=== PATIENT | male | born 1970 | race Caucasian/White ===

== ENCOUNTER 2020-04-03 01:35 | Outpatient (CLI) | payer BC, SELFPAY ==
[2020-04-04 03:00] LABS: SARS-CoV-2 RNA PCR Negative
== END 2020-04-03 01:36 | disposition home or self-care (01) ==
LOC: ANHCOVIDDT 01:35
PROVIDERS: PCP Internal Medicine; Visit Provider Internal Medicine Gastroenterology
DX: Z01.812 Encounter for preprocedural laboratory examination (principal); Z11.59 Encounter for screening for other viral diseases
CPT/HCPCS: 87635; C9803; U0003

== ENCOUNTER 2020-04-05 02:27 | Day surgery (SDC) | payer BC, SELFPAY ==
[2020-04-01 11:26] VITALS: BMI 36.5
[2020-04-05 08:02] VITALS: BP 141/89; PULSE 74; RESP 16; TEMP 36.5; O2SAT 74
--- NOTE | 2020-04-05 08:11 | WPDANESEPPF ---
Anes - Initial Pre Proc Eval Procedure: Operation Date: 04/05/20 09:00 Proposed Procedures p Screening Colonoscopy - David Lazo MD Date/Time: 04/05/20 08:11 Surgeon: David Lazo MD Pre Op Diagnosis: Neoplasm Screening Patient Data Age: 49 Gender: M Height: 6 ft 2 in Weight: 128.4 kg Last Vital Signs Temp 36.5 C 04/05/20 08:02 Pulse 74 04/05/20 08:02 Resp 16 04/05/20 08:02 BP 141/89 H 04/05/20 08:02 Pulse Ox 74 L 04/05/20 08:02 Allergies Allergy/AdvReac Type Severity Reaction Status Date / Time Penicillins Allergy Unknown UNKNOWN-RECEIVED Verified 04/05/20 08:00 A CHILD ILIOSONE Allergy Mild Hives Uncoded 04/05/20 08:00 Home Medications Medication Instructions Recorded Confirmed Type lisinopril 20 mg PO DAILY 04/01/20 04/01/20 History tadalafil 5 mg PO DAILY 04/01/20 04/01/20 History testosterone cypionate 200 mg IM WEEKLY 04/01/20 04/01/20 History Patient hx anesthesia problems: none Family hx anesthesia problems: none PMFSH Past Medical History Medical History (Updated 04/05/20 @ 08:12 by Sukhdev Thacker MD) GERD (gastroesophageal reflux disease) HTN (hypertension) Obesity DORIE (obstructive sleep apnea) Surgical History Surgical History (Updated 04/05/20 @ 08:12 by Sukhdev Thacker MD) History of cholecystectomy Social History Social History Smoking status: Never smoker Alcohol intake: current Drinks per week: 2 Substance use: never Substance use type: does not use Living arrangements: with family Spiritual care concerns: No Anes - Eval Final PreProcedure Day of Procedure 04/05/20 08:11 Patient weight: obese Heart: regular rate and rhythm Lungs: clear to auscultation Airway: Mallampati scale class II Neurological: alert and oriented Last oral intake: >/= 8 hours ASA classification: III Emergent: no Anesthetic plan: proceed Anesthesia type and monitoring: general GIVS and standard monitoring Informed Consent: The patient's anesthetic plan and its attendant risks and benefits were discussed with the patient/family/POA. Questions were solicited and answers provided to the satisfaction of the patient/family/POA.
[2020-04-05] MEDS: LACTATED RINGERS 1,000 ML 150 ML IV CONT (08:19)
--- NOTE | 2020-04-05 08:48 | WPDGICN ---
Assessment and Plan Assessment and plan (1) Family history of colon cancer in father: Code(s): Z80.0 - Family history of malignant neoplasm of digestive organs Status: Acute Assessment and Plan: Patient is a family history of colon cancer in his father period is been 6 years since last endoscopy. Plan is for surveillance colonoscopy at this time and at intervals in the future typically 5 years. (2) Dysphagia: Code(s): R13.10 - Dysphagia, unspecified Status: Acute Assessment and Plan: Patient complains of slow passage of food. Mostly with fatty foods more solid foods. Plan is to arrange EGD to evaluate this electively. GI Consult Note Consult date/time: 04/05/20 08:48 HPI: Jesu Durbin is a 49 year old male Seen in evaluation at the request of Dr. Ky Kim. Patient presents for screening colonoscopy. Family history is significant his father had colon cancer. Patient states that his own weight appetite bowel movements are normal. Patient denies abdominal pain. He has had no bleeding. Patient additionally notices that food will catch in the mid substernal portion of the chest. This will delay past should she of food. Denies any heartburn. He has had no weight loss. Review of Systems Review of Systems: All systems reviewed & are unremarkable except as noted in HPI and below PMFSH Past Medical History Medical History (Updated 04/05/20 @ 08:49 by David Lazo MD) GERD (gastroesophageal reflux disease) HTN (hypertension) Obesity DORIE (obstructive sleep apnea) Surgical History Surgical History (Updated 04/05/20 @ 08:12 by Sukhdev Thacker MD) History of cholecystectomy Social History Social History Smoking status: Never smoker Alcohol intake: current Drinks per week: 2 Substance use: never Substance use type: does not use Living arrangements: with family Spiritual care concerns: No Meds Home Medications and Allergies Home Medications Medication Instructions Recorded Confirmed Type lisinopril 20 mg PO DAILY 04/01/20 04/01/20 History tadalafil 5 mg PO DAILY 04/01/20 04/01/20 History testosterone cypionate 200 mg IM WEEKLY 04/01/20 04/01/20 History Allergies Allergy/AdvReac Type Severity Reaction Status Date / Time Penicillins Allergy Unknown UNKNOWN-RECEIVED Verified 04/05/20 08:00 A CHILD ILIOSONE Allergy Mild Hives Uncoded 04/05/20 08:00 Vital Signs Vital Signs - 24 hr 04/05/20 08:02 Temperature 97.7 F Pulse Rate 74 Respiratory Rate 16 Blood Pressure 141/89 H Pulse Oximetry 74 L Exam Narrative: Exam Narrative: Physical exam reveals patient to be alert. Vital signs stable. HEENT exam unremarkable. Lungs are clear to auscultation and percussion. Heart is without murmur or extra sounds. Abdominal exam bowel sounds are present soft nontender with no hepatosplenomegaly. Digital external rectal exam is normal.
[2020-04-05 09:19] VITALS: BP 116/61; PULSE 66; RESP 22; O2SAT 95
[2020-04-05 09:29] VITALS: BP 122/64; PULSE 65; RESP 18; O2SAT 96
[2020-04-05 09:39] VITALS: BP 125/73; PULSE 60; RESP 20; O2SAT 98
== END 2020-04-05 09:52 | disposition home or self-care (01) ==
PROVIDERS: PCP Internal Medicine; Visit Provider Internal Medicine Gastroenterology
PROC: 0DJD8ZZ Inspection of Lower Intestinal Tract, Via Natural or Artificial Opening Endoscopic (ICD-10-PCS; CPT 45378; principal; 2020-04-05 09:00)
DX: Z12.11 Encounter for screening for malignant neoplasm of colon (principal); Z80.0 Family history of malignant neoplasm of digestive organs; K64.8 Other hemorrhoids; R13.10 Dysphagia, unspecified; K21.9 Gastro-esophageal reflux disease without esophagitis; I10 Essential (primary) hypertension; E66.9 Obesity, unspecified; G47.33 Obstructive sleep apnea (adult) (pediatric)
CPT/HCPCS: 45378; J2704; J7120

== ENCOUNTER 2025-05-11 02:13 | Day surgery (SDC) | payer BC, SELFPAY ==
[2025-04-19 15:48] VITALS: BMI 32.2
--- OUTSIDE RECORDS SUMMARY | 2025-05-11 02:16 | XMS_ITS | Clinical Summary ---
Author Organization [facility] Address [address] [place] [id number] Care Team Providers Care Cath Lab Nurse Name Role Phone Myra Omalley PA-C Primary Care Provider [phone] Allergies Active Allergy Reactions Criticality Noted Date Comments Penicillins Rash Low 11/26/2018 As child Medications lisinopril 20 MG tablet Take 1 tablet (20 mg total) by mouth daily. 12/25/19 21 Active BD INTEGRA SYRINGE 21G X 1-1/2 3 ML Misc USE WITH TESTOSTERONE DIRECTED 03/27/20 21 Active B-D 5CC LUER-AGUSTIN SYR 22GX1 22G X 1 5 ML Misc see administration instructions. 09/27/19 21 Active tadalafil 5 MG tablet Take 1 tablet (5 mg total) by mouth daily. 02/18/20 21 Active testosterone cypionate 200 MG/ML injection INJECT 1ML INTO THE MUSCLE WEEKLY 03/28/20 21 Active triamcinolone 0.1 % cream APPLY TO AFFECTED AREAS TWICE DAILY UNTIL ALL CLEAR. RUB IN WELL. 02/18/20 21 Active omeprazole 20 MG capsuleIndicati ons:Gastroesoph ageal reflux disease, unspecified whether esophagitis present Take 1 capsule (20 mg total) by mouth daily. 90 capsule 1 04/08/20 21 Active scopolamine (TRANSDERM-SCOP ) 1 MG/3DAYS patch Place 1 patch onto the skin every third day. 10 patch 01/16/20 24 Active Active Problems Problem Noted Date Diagnosed Date H. pylori infection 04/18/2021 Immunizations Immunization Administration Dates Next Due Tdap (Boostrix) 11/26/2018 Family History Medical History Relation Comments Hypertension Father Cancer Mother Relation Status Comments Father Mother Social History Tobacco Use Types Packs/Day Years Used Date Smoking Tobacco: Never Smokeless Tobacco: Never Alcohol Use Standard Drinks/Week Comments Yes 0 (1 standard drink = 0.6 oz pur e alcohol) occasional Sex and Gender Information Value Date Recorded Sex Assigned at Not on file Legal Sex Male 2:58 PM CDT Gender Identity Not on file Sexual Orientation Not on file Last Filed Vital Signs Vital Sign Reading Time Taken Comments Blood Pressure 146/90 01/16/2024 10:15 AM CDT Pulse 60 01/16/2024 10:15 AM CDT Temperature 36.4 C (97.5 F) 01/16/2024 10:15 AM CDT Respiratory Rate 15 01/16/2024 10:15 AM CDT Oxygen Saturation 93% 01/16/2024 10:15 AM CDT Inhaled Oxygen Concentration - - Weight 121.1 kg (267 lb) 01/16/2024 8:30 AM CDT Height 188 cm (6' 2) 01/16/2024 8:30 AM CDT Body Mass Index 34.28 01/16/2024 8:30 AM CDT Plan of Treatment Health Maintenance Due Date Last Done Comments Colorectal Cancer Screening Colonoscopy (10 Years) 1968 Annual Physical 1971 Hepatitis C 1986 Hepatitis B Vaccines (1 of 3 - 19+ 3-dose series) 1987 Pneumococcal Vaccine: 50+ Years (1 of 1 - PCV) 2018 Zoster Vaccines (1 of 2) 2018 COVID-19 Vaccine (3 - 2024-2 6 season) 2025 09/03/2020, 08/06/2020 Influenza Adult (#1) 2025 05/11/2017 DTaP, Tdap and Td Vaccines ( 2 - Td or Tdap) 11/26/2028 11/26/2018 Hepatitis A Vaccines Aged Out No long er eligible based on patient's age to complete this topic Meningococcal B Vaccine Aged Out No l onger eligible based on patient's age to complete this topic Meningococcal Vaccine Aged Out No catrachita kenia eligible based on patient's age to complete this topic RSV Immunizations Under 20 Months Aged Out No longer eligible b ased on patient's age to complete this topic Insurance [facility] Care Teams Cath Lab Nurse Relationship Specialty Start Date End Date Myra Omalley PA-C [address] [place] [address] [address] [place] [address] PCP - General PHYSICIAN WINERY WORKER 01/16/24
--- OUTSIDE RECORDS SUMMARY | 2025-05-11 02:16 | XMS_ITS | Encounter Summary ---
Author Organization [facility] Address [address] [place] [address] Care Team Providers Care Intelligence Clerk Name Role Phone Unavailable Primary Care Provider Unavailabl e Encounter Details Date Type Department Care Team (Late st Contact Info) Description 12/10/2022 Lab Requisition [facility] - DermPath Lab [address] [place] [id number] Johnny Dudley MD [address] [place] [address] Social History Tobacco Use Types Packs/Day Years Used Date Smoking Tobacco: Never Assessed Sex and Gender Information Value Date Recorded Sex Assigned at Not on file 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 Gender Identity Not on file Sexual Orientation Not on file documented as of this encounter Plan of Treatment Not on file documented as of this encounter Procedures Procedure Name Priority Date/Time Associated Diagnosis Comments DERMATOPATHOLOGY Routine 12/09/2022 12:0 0 AM CDT documented in this encounter Results * DERMATOPATHOLOGY (12/09/2022 12:00 AM CDT) Case Report Dermatopathology Report Case: [id number] Authorizing Provider: Johnny Dudley MD Collected: 12/09/2022 12:00 AM Ordering Location: [facility] Derm[facility] Lab Received: 12/10/2022 12:39 PM Pathologist: Laura Tse MD Specimen: Skin, left nasal wall 3 1:11 PM CDT DERMATOPATHOLOGY LABORATORY Final Diagnosis Specimen A. SKIN, left nasal wall: SQUAMOUS CELL CARCINOMA, WELL DIFFERENTIATED (C44.321) 3 1:11 PM CDT DERMATOPATHOLOGY LABORATORY at 1311 CDT Clinical History R/O SCC 1:11 PM CDT DERMATOPATHOLOGY LABORATORY Gross Description Specimen A: Received is one formalin filled container labeled with the patient's name and designated left nasal wall. The specimen consists of a shave biopsy measuring 5x5x2 mm. Jar 0. 1:11 PM CDT DERMATOPATHOLOGY LABORATORY Microscopic Description Specimen A. SKIN, left nasal wall: Arising in the epidermis and extending into the dermis there are irregularly shaped aggregates of keratinocytes showing evidence of premature cornification. 1:11 PM CDT DERMATOPATHOLOGY LABORATORY Disclaimer An external and internal positive and negative controls are appropriate for the histochemical, immunohistochemical and immunofluorescence stain(s) in this case (if any), except where stated explicitly. The performance characteristics of the stain(s) cited in this report were developed and its performance characteristic determined by the Dermatopathology Laboratory at [facility], directed by Dr. Dat Cervantes. These tests need not be, and therefore are not, approved by the [place] Food and Drug Administration. The tests are used for clinical purposes. Billing Codes Specimen Charges Stain Charges 18440 1 1:11 PM CDT DERMATOPATHOLOGY LABORATORY Embedded Images 1:11 PM CDT DERMATOPATHOLOGY LABORATORY Pathology/Cytolog y TISSUE SPECIMEN FROM SKIN / Unknown 12/09/2022 12/10/2022 12:39 PM CDT Johnny Dudley MD LAB - PATHOLOGY/CYTOLOGY ORDERAB LES Final Result DERMATOPATHOLOGY LABORATORY [facility] - Department of Dermatology [address] [place] [address], [facility] [phone] documented in this encounter Visit Diagnoses Not on filedocumented in this encounter
--- OUTSIDE RECORDS SUMMARY | 2025-05-11 02:16 | XMS_ITS | Clinical Summary ---
Author Organization [facility] [address] Address [address] [place] [address] Care Team Providers Care Hot Knife Foxing Cutter Name Role Phone Unavailable Primary Care Provider Unavailabl e Social History Tobacco Use Types Packs/Day Years Used Date Smoking Tobacco: Never Assessed Sex and Gender Information Value Date Recorded Sex Assigned at Not on file Legal Sex Male 3:48 PM EST Gender Identity Not on file Sexual Orientation Not on file Plan of Treatment Not on file Medical Devices Not on file
--- OUTSIDE RECORDS SUMMARY | 2025-05-11 02:16 | XMS_ITS | Clinical Summary ---
Author Organization [facility] Address [address] 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
--- OUTSIDE RECORDS SUMMARY | 2025-05-11 02:16 | XMS_ITS | Encounter Summary ---
Author Organization [facility] Address 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
--- OUTSIDE RECORDS SUMMARY | 2025-05-11 02:16 | XMS_ITS | Clinical Summary ---
Author Organization [facility] Address [address] [place] [address] Care Team Providers Care Flight Attendant/Inflight Supervisor Name Role Phone Unavailable Primary Care Provider Unavailabl e Source Comments [facility],non-owned Affiliates and Associated Physician Practices is amultiple site organization consisting of ambulatory clinics and hospital sitesin [place], [place], [place]. This disclosure is being madepursuant to the Care Everywhere program and may not contain all information available regarding this patient. Last updated 18.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 Gender Identity Not on file Sexual Orientation Not on file Plan of Treatment Health Maintenance Due Date Last Done Comments COLOGUARD (AGES 45-75) - COL ON CA SCREENING 1968 COLON MONITORING 1968 COLONOSCOPY - COLON CA SCREENING 1968 CT COLONOGRAPHY - COLON CA SCREENING 1968 Colorectal Cancer Screening 1968 FIT - COLON CA SCREENING 1968 FLEX SIG - COLON CA SCREENING 1968 LIPID TESTING 1968 HIV SCREENING 1983 HEPATITIS C SCREENING 06/27/1986 DTAP/TDAP/TD VACCINES (1 - Tdap) 1987 HEPATITIS B VACCINE (1 of 3 - 19+ 3-dose series) 1987 PNEUMOCOCCAL VACCINE 50+ (1 of 1 - PCV) 2018 ZOSTER VACCINE (1 of 2) 2018 DEPRESSION SCREENING 05/31/2024 COVID-19 VACCINE (1 - 2024-2 6 season) 2025 INFLUENZA VACCINE (#1) 2025 HIB VACCINE Aged Out No longer eligi ble based on patient's age to complete this topic HPV VACCINE Aged Out No longer eligi ble based on patient's age to complete this topic MENINGOCOCCAL (Group B) VACC INE SHARED DECISION-MAKING Aged Out No longer eligibl e based on patient's age to complete this topic MENINGOCOCCAL GROUPS A/C/Y/W VACCINE Aged Out No longer eligible b ased on patient's age to complete this topic Insurance [employer]
[2025-05-11 08:19] VITALS: BP 130/78; PULSE 79; RESP 18; TEMP 36.4; O2SAT 98; BMI 32.5
[2025-05-11] MEDS: LACTATED RINGERS 1,000 ML 150 ML IV CONT (08:32)
--- NOTE | 2025-05-11 08:32 | WPDANESEPPF ---
Anes - Initial Pre Proc Eval Procedure: Operation Date: 05/11/25 09:30 Proposed Procedures p Screening Colonoscopy - Loc Zuniga MD Date/Time: 05/11/25 08:32 Surgeon: Loc Zuniga MD Pre Op Diagnosis: Encounter for screening for malignant neoplasm of Patient Data Age: 54 Gender: M Height: 1.88 m Weight: 115 kg Last Vital Signs Temp 36.4 C L 05/11/25 08:19 Pulse 79 05/11/25 08:19 Resp 18 05/11/25 08:19 BP 130/78 05/11/25 08:19 Pulse Ox 98 05/11/25 08:19 O2 Del Method Room Air 05/11/25 08:19 Allergies Allergy/AdvReac Type Severity Reaction Status Date / Time Penicillins Allergy Unknown UNKNOWN-RECEIVED Verified 04/30/25 10:46 A CHILD ILIOSONE Allergy Mild Hives Uncoded 04/30/25 10:46 Home Medications ?Medication ?Instructions ?Recorded ?Confirmed ?Type tadalafil 5 mg tablet 5 mg PO DAILY 04/01/20 05/11/25 History testosterone cypionate 200 mg/mL 200 mg IM WEEKLY 04/01/20 05/11/25 History intramuscular oil syringe with needle 3 mL 21 gauge #100 ea 09/28/24 04/30/25 History x 1 1/2 (BD Luer-Blanquita Syringe) cholecalciferol (vitamin D3) 50 50 mcg PO DAILY 11/27/24 04/30/25 History mcg (2,000 unit) capsule lisinopril 40 mg tablet 40 mg PO DAILY #90 tabs 01/22/25 05/11/25 Rx omeprazole 20 mg capsule,delayed 20 mg PO DAILY #90 caps 01/22/25 05/11/25 Rx release rosuvastatin 10 mg tablet (Crestor) 10 mg PO QHS #90 tabs 01/22/25 05/11/25 Rx tirzepatide (weight loss) 15 15 mg (0.5 mL) subcut WEEKLY #2 mL 04/11/25 05/11/25 Rx mg/0.5 mL subcutaneous pen injector ondansetron 4 mg disintegrating 4 mg PO Q6-8H #20 tabs 04/30/25 04/30/25 Rx tablet Patient hx anesthesia problems: none Family hx anesthesia problems: none Results Review: All pre-operative results and documents have been reviewed as part of the pre-operative evaluation. [facility] Past Medical History Medical History Dyslipidemia Esophageal stricture Positive self-administered antigen test for COVID-19 Upper respiratory tract infection GERD (gastroesophageal reflux disease) esophageal stricture HTN (hypertension) DORIE (obstructive sleep apnea) Obesity Surgical History Surgical History History of cholecystectomy Social History Social History Social History: 10/03/24 patient declined SDOH Smoking status: Never smoker Alcohol intake: current Drinks per week: 2 Substance use: never Substance use type: does not use Lack of Transportation: No Lack of Food: Never True Current Housing: I Have Housing Concerned About Future Housing: No Difficulty Paying Gas/Electric Bills: No Difficulty Paying for Meds: No Currently Unemployed: No Education: High School Diploma/GED Difficulty w/ Childcare or Family Care: No Living arrangements: with family Occupation/Education: occupation Gender identity (if verbalized by the patient): Male Spiritual care concerns: No Anes - Eval Final PreProcedure Day of Procedure 05/11/25 08:32 Patient weight: obese Heart: regular rate and rhythm Lungs: clear to auscultation Airway: Mallampati scale class II Neurological: alert and oriented Last oral intake: >/= 8 hours ASA classification: III Emergent: no Anesthetic plan: proceed Anesthesia type and monitoring: general GIVS and standard monitoring Results Review: All pre-operative results and documents have been reviewed as part of the pre-operative evaluation. Informed Consent: The patient's anesthetic plan and its attendant risks and benefits were discussed with the patient/family/POA. Questions were solicited and answers provided to the satisfaction of the patient/family/POA.
--- NOTE | 2025-05-11 08:33 | PM.HPGS ---
History of Present Illness History of Present Illness Consent: Risks, benefits, and alternatives have been discussed and questions answered. Patient agrees to proceed with procedure. Chief complaint: Encounter for screening for malignant neoplasm of Narrative: Jesu Durbin is a 54 year old male with last colonoscopy 2019, father had colon cancer Review of Systems Review of Systems: All systems reviewed & are unremarkable except as noted in HPI and below PMFSH Past Medical History Medical History Dyslipidemia Esophageal stricture Positive self-administered antigen test for COVID-19 Upper respiratory tract infection GERD (gastroesophageal reflux disease) esophageal stricture HTN (hypertension) DORIE (obstructive sleep apnea) Obesity Surgical History Surgical History History of cholecystectomy Social History Social History Social History: 10/03/24 patient declined SDOH Smoking status: Never smoker Alcohol intake: current Drinks per week: 2 Substance use: never Substance use type: does not use Lack of Transportation: No Lack of Food: Never True Current Housing: I Have Housing Concerned About Future Housing: No Difficulty Paying Gas/Electric Bills: No Difficulty Paying for Meds: No Currently Unemployed: No Education: High School Diploma/GED Difficulty w/ Childcare or Family Care: No Living arrangements: with family Occupation/Education: occupation Gender identity (if verbalized by the patient): Male Spiritual care concerns: No Meds Home Medications and Allergies Home Medications ?Medication ?Instructions ?Recorded ?Confirmed ?Type tadalafil 5 mg tablet 5 mg PO DAILY 04/01/20 05/11/25 History testosterone cypionate 200 mg/mL 200 mg IM WEEKLY 04/01/20 05/11/25 History intramuscular oil syringe with needle 3 mL 21 gauge #100 ea 09/28/24 04/30/25 History x 1 1/2 (BD Luer-Blanquita Syringe) cholecalciferol (vitamin D3) 50 50 mcg PO DAILY 11/27/24 04/30/25 History mcg (2,000 unit) capsule lisinopril 40 mg tablet 40 mg PO DAILY #90 tabs 01/22/25 05/11/25 Rx omeprazole 20 mg capsule,delayed 20 mg PO DAILY #90 caps 01/22/25 05/11/25 Rx release rosuvastatin 10 mg tablet (Crestor) 10 mg PO QHS #90 tabs 01/22/25 05/11/25 Rx tirzepatide (weight loss) 15 15 mg (0.5 mL) subcut WEEKLY #2 mL 04/11/25 05/11/25 Rx mg/0.5 mL subcutaneous pen injector ondansetron 4 mg disintegrating 4 mg PO Q6-8H #20 tabs 04/30/25 04/30/25 Rx tablet Allergies Allergy/AdvReac Type Severity Reaction Status Date / Time Penicillins Allergy Unknown UNKNOWN-RECEIVED Verified 04/30/25 10:46 A CHILD ILIOSONE Allergy Mild Hives Uncoded 04/30/25 10:46 Vital Signs Vital Signs - 24 hr 05/11/25 08:19 Temperature 97.5 F L Pulse Rate 79 Respiratory Rate 18 Blood Pressure 130/78 Pulse Oximetry 98 Oxygen Delivery Room Air Exam Const: General: comfortable and no acute distress HENMT: Face/Nose/Sinus: Normal nares present Eyes: General: appearance normal, both eyes and all related structures Neck: Neck: no JVD Resp: Auscultation: clear to auscultation bilaterally Cardio: Rate: regular rate Rhythm: regular rhythm GI: Inspection: non-distended GI Palp: Yes Soft to palpation Skin: General skin exam: normal color Extrem: General: normal to inspection Psych: Mental Status: mental status grossly normal Assessment and Plan Assessment and plan (1) Family history of colon cancer in father: Code(s): Z80.0 - Family history of malignant neoplasm of digestive organs Status: Acute Assessment and Plan: colonoscopy
[2025-05-11 08:59] VITALS: BP 105/67; PULSE 82; RESP 16; O2SAT 95
[2025-05-11 09:09] VITALS: BP 115/61; PULSE 73; RESP 18; O2SAT 98
[2025-05-11 09:19] VITALS: BP 126/83; PULSE 71; RESP 17; O2SAT 99
== END 2025-05-11 09:29 | disposition home or self-care (01) ==
PROVIDERS: PCP Physician Assistant Medical; Referring Provider Physician Assistant Medical; Visit Provider Internal Medicine Gastroenterology
PROC: 0DJD8ZZ Inspection of Lower Intestinal Tract, Via Natural or Artificial Opening Endoscopic (ICD-10-PCS; CPT 45378; principal; 2025-05-11 09:30)
DX: Z12.11 Encounter for screening for malignant neoplasm of colon (principal); K64.8 Other hemorrhoids; E78.5 Hyperlipidemia, unspecified; K21.9 Gastro-esophageal reflux disease without esophagitis; I10 Essential (primary) hypertension; G47.33 Obstructive sleep apnea (adult) (pediatric); E66.9 Obesity, unspecified; Z68.32 Body mass index [BMI] 32.0-32.9, adult; Z79.85 Long-term (current) use of injectable non-insulin antidiabetic drugs; Z90.49 Acquired absence of other specified parts of digestive tract; Z87.19 Personal history of other diseases of the digestive system; Z80.0 Family history of malignant neoplasm of digestive organs
CPT/HCPCS: 45378; J2003; J2704; J7120